=== PATIENT | female | born 1930 | race Caucasian/White ===

== ENCOUNTER → 2017-02-19 | Outpatient (CLI) | payer MEDICARE, OTHER ==
[~2017-02-19] MED LIST: ATOR10TA60 PO; IBUP200C9 PO; LISI10TA2 PO; MULT-658 PO
--- NOTE | 2017-02-19 14:29 | KCIC ---
PROCEDURE CT head without contrast. HISTORY Memory loss with speech problems starting 3 months ago TECHNIQUE Noncontrast CT imaging was performed of the head. Exposure: One or more of the following individualized dose reduction techniques were utilized for this exam: 1. Automated exposure control. 2. Adjustment of the mA and/or kV according to patient size. 3. Use of iterative reconstruction technique. COMPARISON None FINDINGS No acute intracranial hemorrhage is identified. There is mild generalized supratentorial involutional change. Ventricular size is within normal limits. There is no intra-axial mass effect, midline shift, or extra-axial fluid collection. There is atherosclerotic calcification of the carotid siphons bilaterally, also of the right intradural vertebral artery. Visualized paranasal sinuses and mastoid air cells are aerated. IMPRESSION 1. No acute intracranial abnormality is identified. 2. There is mild generalized supratentorial involutional change. Electronically signed by: Krishna King MD (February 19, 2017 14:27:55)
== END | disposition home or self-care (01) ==
LOC: KCIC CT 13:31
PROVIDERS: ATTEND Family Medicine
DX: R41.3 Other amnesia (principal); F80.9 Developmental disorder of speech and language, unspecified
CPT/HCPCS: 70450

== ENCOUNTER → 2017-06-18 | Outpatient (CLI) | payer MEDICARE, OTHER ==
[~2017-06-18] MED LIST changes: +CONTRAST GIVEN MC PRN; +IOHEXOL 240 MG/ML 50ML VIAL. PO ONE; +IOHEXOL 300 MG/ML 100ML VIAL. IV ONE
--- NOTE | 2017-06-18 15:11 | KCIC ---
CT abdomen and pelvis with contrast History: Liver cyst seen on outside ultrasound, pelvic pain, elevated liver function tests Technique: After the administration of oral and intravenous contrast, CT imaging was performed of the abdomen and pelvis. Multiplanar images are reviewed. Exposure: One or more of the following individualized dose reduction techniques were utilized for this examination: 1. Automated exposure control 2. Adjustment of the mA and/or kV according to patient size 3. Use of iterative reconstruction technique. Contrast: 89 cc Omnipaque 300 Comparison: None Findings: There is a 1.5 cm hypodense lesion of the left lobe of the liver, density measurements suggestive of a cyst 19 Hounsfield units. There is other smaller hypodense lesion of the liver difficult to otherwise accurately characterize given small size of 0.7 cm , density measurements 25 Hounsfield units more suggestive of a cyst. Gallbladder is present without obvious intraluminal abnormality by CT. There is no adrenal nodularity. Both kidneys enhance, no hydronephrosis. No focal abnormality is identified of the pancreas or spleen. Bowel is not significantly dilated. There is mild gaseous distention of the rectosigmoid colon. There is no free fluid or free air. Normal appendix is believed to be visualized. There are some small nonspecific mesenteric lymph nodes. Mild wall thickening of terminal ileum is not excluded. There is also mild relative wall prominence of the ascending colon. There is heterogeneity of the uterus. There is multilevel advanced lumbar degenerative disc disease, also multilevel spondylosis. There is multilevel lumbar facet degenerative change. There is mild lumbar levoscoliosis. There is likely [id number] spinal stenosis L3-4. There is lumbar neural foramina compromise greatest on the left L3-4. There is atherosclerotic calcification of the abdominal aorta and iliac arteries. Impression: 1. There is a cyst of left lobe of the liver, another smaller hypodense focus of the liver likely small cyst although difficult to characterize given small size. 2. While potentially due to peristalsis and incomplete distention, there is appearance of mild wall prominence of the terminal ileum and ascending colon which could be due to mild enterocolitis. There is no free air or free fluid. 3. There is nonspecific heterogeneity of the uterus. 4. There is multilevel advanced lumbar degenerative disc disease and multilevel spondylosis. There is likely mild to moderate spinal stenosis L3-4. Electronically signed by: Francisco J King MD (06/18/2017 3:08 PM) [email or web address]
== END | disposition home or self-care (01) ==
LOC: KCIC CT 09:54
PROVIDERS: ATTEND Family Medicine
DX: K76.89 Other specified diseases of liver (principal); M48.06 Spinal stenosis, lumbar region; M51.36 Other intervertebral disc degeneration, lumbar region
CPT/HCPCS: 74177; 82565; Q9966; Q9967